=== PATIENT | female | born 2000 | race Two or more races ===

== ENCOUNTER 2024-10-09 17:19 | Emergency (ER) | payer MEDICAID, SELFPAY ==
[2024-10-09 17:19] VITALS: BMI 23.6
[2024-10-09 17:25] VITALS: BP 106/72; PULSE 104; RESP 20; TEMP 36.8; O2SAT 95
--- NOTE | 2024-10-09 17:28 | XR_ITS ---
Examination: Complete OB ultrasound, less than 14 weeks, transabdominal Date and time of exam: October 09, 2024 1823 hours INDICATIONS: Pelvic cramping beginning today Technique: Obstetrical ultrasound images less than 14 weeks performed via transabdominal imaging Findings: Uterus 12.0 cm, pole 5.2 cm corresponds to 11 week 6 day gestational age No cardiac motion Right ovary obscured by bowel gas Left ovary 3.1 cm arterial flow IMPRESSION: demise
--- NOTE | 2024-10-09 17:28 | PD.EDRME ---
Rapid Medical Screening Exam RME Arrival date/time: 10/09/24 17:19 24-year-old female G5, presents to the emergency department today for complaints of pelvic pain and back pain patient reports being Chief Complaint: General Adult/Misc Complain Vital signs: Vital Signs Temperature 98.2 F 10/09/24 17:25 Pulse Rate 104 H 10/09/24 17:25 Respiratory Rate 20 10/09/24 17:25 Blood Pressure 106/72 10/09/24 17:25 Pulse Oximetry (%) 95 10/09/24 17:25 Oxygen Delivery Method Room Air 10/09/24 17:25
[2024-10-09 18:03] LABS: Basophils % (Auto) 0 % (0-2.5); Eosinophils # (Auto) 0.2 Thou/mm3 (0.0-0.5); Eosinophils % (Auto) 2 % (0-10); Hematocrit 44.4 % (36.0-46.0); Immature Granulocytes % (Auto) 0 % (0-0); Immature Granulocytes Auto 0.03 Thou/mm3 (0.00-0.00); Lymphocytes # (Auto) 2.5 Thou/mm3 (1.0-4.8); Lymphocytes % (Auto) 27 % (10-50); Mean Corpuscular HGB Conc 33.8 g/dl (31.0-37.0); Mean Corpuscular Hemoglobin 29.5 pg (25.0-35.0); Mean Corpuscular Volume 87 fL (80-100); Monocytes # (Auto) 0.6 Thou/mm3 (0.0-0.8); Monocytes % (Auto) 6 % (0-12); Neutrophils # (Auto) 5.8 Thou/mm3 (1.8-7.7); Neutrophils % (Auto) 64 % (37-80); Nucleated Red Blood Cell % 0 /100 WBC (0); Platelet Count 295 Thou/mm3 (140-440); Red Blood Count 5.08 Miln/mm3 (4.00-5.20); White Blood Count 9.1 Thou/mm3 (3.6-11.0)
[2024-10-09 18:34] LABS: Alanine Aminotransferase 8 U/L (10-49); Albumin, Serum 4.5 gm/dL (3.5-5.0); Albumin/Globulin Ratio 1.5 (1.2-2.2); Alkaline Phosphatase 49 U/L (46-116); Anion Gap 7 (7-16); Aspartate Amino Transferase 14 U/L (0-34); BUN/Creatinine Ratio 10 Ratio (12-20); Bilirubin,Total 0.5 mg/dL (0.3-1.2); Blood Urea Nitrogen 5 mg/dL (9-23); Calcium 9.4 mg/dL (8.3-10.6); Calcium (Corrected) 9.4 mg/dL (8.5-10.1); Carbon Dioxide 25.7 mMol/L (20.0-31.0); Chloride 105 mMol/L (98-107); Creatinine (Component) 0.5 mg/dL (0.6-1.3); Estimated Creatinine Clearance 142.3 mL/min (>60); Globulin 3.1 gm/dL (2.3-3.5); Glucose 97 mg/dL (74-106); Osmolality,Calculated 272 (275-295); Potassium 4.1 mMol/L (3.4-5.1); Sodium 138 mMol/L (136-145); Total Protein 7.6 gm/dL (5.7-8.2); eGFR > 60 See Note
[2024-10-09 19:01] LABS: Beta HCG,Quantitative 58130 mIU/mL (<5.0)
[2024-10-09 19:46] LABS: Collection Type, Urine Clean Catch
[2024-10-09 20:00] LABS: Bacteria,Urine 3+; Bilirubin,Urine Negative (Negative); Blood,Urine Negative (Negative); Clarity,Urine Clear (Clear/Hazy); Color,Urine Colorless (Lt Yel-Yel); Glucose, Urine Negative (Negative); Ketones,Urine Negative (Negative); Leukocyte Esterase,Urine Negative (Negative); Nitrite,Urine Negative (Negative); Protein,Urine Negative (Neg - Trace); RBC,Urine 2 /hpf (0-3); Specific Gravity,Urine 1.004 (1.001-1.035); Squamous Epithelial Cell,Urine 1 /hpf (0-5); Urobilinogen,Urine Negative mg/dL (0.0-1.0); WBC,Urine 1 /hpf (0-5)
[2024-10-09 22:06] VITALS: BP 111/73; PULSE 81; RESP 16; TEMP 37.2; O2SAT 99
[2024-10-09 23:34] VITALS: BP 101/61; PULSE 83; RESP 18; TEMP 36.8; O2SAT 96
--- NOTE | 2024-10-10 00:46 | PD.EDADULT ---
ED General RME/HPI General Chief complaint: General Adult/Misc Complain Stated complaint: 12WK PREG, LOWER ABD CRAMPING AND BACK PAIN SINCE Time Seen by Provider: 10/09/24 21:25 Arrival date/time: 10/09/24 17:19 RME / HPI RME / HPI narrative: 10/09/24 17:19 24-year-old female G5, presents to the emergency department today for complaints of pelvic pain and back pain patient reports being --------- Dr. Mondragon?s Main ED Evaluation: 24yo female presents to the ED for complaints of pelvic pain and back pain. Patient states she started having abdominal and back cramps earlier today. She states she is 12 weeks gestation. She denies any fever, chills, vaginal bleeding, abnormal discharge or any other associated symptoms. She does not have any OB follow-up. Related Data Previous Rx's ?Medication ?Instructions ?Recorded hydrocodone 5 mg-acetaminophen 325 1 tab PO Q6H #20 tabs 20 mg tablet ([place]) ibuprofen 600 mg tablet 600 mg PO Q6H #30 tabs 15/20 doxycycline monohydrate 100 mg 100 mg PO BID Leg cellulitis 10 10/09/24 capsule days #20 caps Allergies Allergy/AdvReac Type Severity Reaction Status Date / Time Penicillins Allergy Unknown Verified 10/09/24 17:21 Review of Systems Review of Systems Systems Reviewed: All systems reviewed, normal except as documented Past Medical History Past Medical History NEUROLOGIC: Negative Neurological Disorders or Seizures CARDIAC: Negative Cardiac Disorders or Congestive Heart Failure RESPIRATORY: Negative Chronic Obstructive Pulmonary Disease (COPD) GASTROINTESTINAL: Negative Gastrointestinal Disorders, Hepatitis or Colorectal Cancer GENITOURINARY: Negative Genitourinary Disorders, Renal Disease or Prostate Cancer REPRODUCTIVE: Negative Breast Cancer, Endometriosis, Pelvic Inflammatory Disease, Previous Pregnancies, Testicular Cancer or Uterine Prolapse MUSCULOSKELETAL: Negative Musculoskeletal Disorders or Bone Cancer ENDOCRINE: Negative Endocrine Disorders, Diabetes Mellitus Type 1 or Diabetes Mellitus Type 2 HEMATOLOGIC: Negative Blood Disorders OTHER HISTORY: Negative Hospitalization, Autoimmune Disease, Down Syndrome, Developmental Delay, Shingles, Falls, Blood Transfusions, Blood Transfusion Reaction, Anesthesia Reactions, Organ Transplant, Chemotherapy, Radiation Therapy, Hyperbaric Therapy, MRSA, VRSA, Vancomycin-Resistant Enterococci, Human Immunodeficiency Virus (HIV), Chicken Pox, Measles, Mumps, Rubella (Gabonese Measles), Pertussis, Clostridium Difficile, Breast Cancer, Cervical Cancer, Colorectal Cancer, Lung Cancer, Ovarian Cancer, Prostate Cancer or Testicular Cancer Family History FAMILY HISTORY: Negative Family Psychiatric Problems, Family Respiratory Disorders, Family Cardiac Disorders, Family Gastrointestinal Problems, Family Cancer, Family Surgery or Family Anesthesia Reaction Surgical History SURGICAL: Negative Abdominal Surgery, Section or Organ Transplant Social History SMOKING STATUS: Never smoker SUBSTANCE USE: does not use ED Exam Narrative Physical exam: GENERAL APPEARANCE: alert and oriented x 4, well-developed, well-nourished, no acute distress VITALS: All vitals were reviewed and the pulse ox is 96% on room air, which is normal according to my interpretation. HEENT: Normocephalic, atraumatic; pupils equal, round, reactive to light; EOMI; mucous membranes pink, moist; oropharynx clear NECK: Supple LUNGS: CTABL; no wheezes, no rales, no rhonchi HEART: Regular rate, regular rhythm; normal S1, S2; no murmurs ABDOMEN: non distended; normal BS; soft, no tenderness, no guarding, no rebound; no masses, no organomegaly, no hernia BACK: no CVA tenderness EXTREMITIES: atraumatic; no edema NEUROLOGIC: awake; alert and oriented x4; cranial nerves II-XII grossly intact; no focal sensory or motor deficits PSYCHIATRIC: appropriate mood and affect SKIN: warm, dry, normal color; no rashes Course Quality Measures none Orders Category Date Time Status US OB <= 14 weeks fetus Stat Exams 10/09/24 17:28 Completed ABO/RH Type Stat Lab 10/09/24 17:52 Completed Beta HCG,Quantitative Stat Lab 10/09/24 17:52 Completed CBC Stat Lab 10/09/24 17:52 Completed Comprehensive Metabolic Panel Stat Lab 10/09/24 17:52 Completed UA [Urinalysis] Stat Lab 10/09/24 19:30 Completed Urine Culture Stat Lab 10/09/24 19:30 Received Doxycycline [Vibramycin] Med 10/09/24 21:40 Discontinued 100 mg PO X1 ONE Vital Signs Vital signs: Vital Signs Temperature 98.2 F 10/09/24 17:25 Pulse Rate 104 H 10/09/24 17:25 Respiratory Rate 20 10/09/24 17:25 Blood Pressure 106/72 10/09/24 17:25 Pulse Oximetry (%) 95 03/31/25 17:25 Oxygen Delivery Method Room Air 10/09/24 17:25 [facility] Patient data External records reviewed:: [facility] previous records (Per chart review, patient was seen here yesterday for cellulitis.) Clinical information provided by:: patient Social determinants that could affect healthcare access:: none Patient has the following chronic illnesses:: none How is presenting disease/condition affected by chronic disease/condition?: no chronic disease Evaluation data The following diagnostics were reviewed and interpreted by me:: lab results and radiology exam(s) Lab and/or radiology exams considered but not ordered:: none Interpretation Summary: CBC is normal, [place] [address], according to my interpretation. [facility] Report Signed Patient: USHA NOBLES Record#: [id number] Birthdate: 2000 Age/Sex: 24 / F Location: [facility] Attending Dr: Ordering Physician: Osman FRIED)Oz NP Date of Service: 10/09/24 Procedure(s): US OB <= 14 weeks fetus Accession Number(s): [id number] cc: Osman FRIED),Oz WHITFIELD; Nirmal Barber MD; NO PRIMARY/FAMILY,PHYSICIAN~ Examination: Complete OB ultrasound, less than 14 weeks, transabdominal Date and time of exam: October 09, 2024 1823 hours INDICATIONS: Pelvic cramping beginning today Technique: Obstetrical ultrasound images less than 14 weeks performed via transabdominal imaging Findings: Uterus 12.0 cm, pole 5.2 cm corresponds to 11 week 6 day gestational age No cardiac motion Right ovary obscured by bowel gas Left ovary 3.1 cm arterial flow IMPRESSION: demise Dictated By: Nirmal Barber MD Signed By: <Electronically signed by Nirmal Barber MD in OV> 10/09/24 1922 Medications Medications considered but not ordered:: none Medication administrations:: Medication Administration History Discontinued Medications Doxycycline Hyclate (Doxycycline 100 Mg Tablet) 100 mg PO X1 ONE Stop: 10/09/24 21:41 Last Admin: 10/09/24 22:03 Dose: Not Given Documented By: FAISAL Non-Admin Reason: Discontinued see above Consultations Consultation(s) initiated? (list below): Yes Consultation #1 (Physician, Specialty, Details): Discussed case with [Dr. Nowak] from OB regarding consultation. Discussed patients ED course, exam findings, labs, and radiology results. States the patient can follow-up with her in the clinic in the next 1-2 days. Time: 00:46 Diagnosis Differential Diagnosis ED Complaint MDM: incomplete AB, inevitable AB, complete AB, threatened AB Most likely diagnosis given after review of the tests above:: see below Admission Indicated Admission indicated?: not indicated Explain why admission is indicated or not indicated:: No criteria for admission. Admission Request Was there a request for admission?: No Disposition Plan Disposition Plan: Discharge Discharge Attestation Discharge Attestation: The patient and all family members were given an opportunity to ask questions and understood the discharge instructions. Discharge instructions specifically effects, indications for sooner follow up or return to the emergency department, and the expected course of current diagnosis. Patient condition: Stable Medical Decision Making MDM Narrative MDM Narrative: Scribe Attestation: 10/10/24 - Iris Willett am scribing for and in the presence of Dr. Mondragon. Differential Diagnosis Differential Diagnosis: incomplete AB, inevitable AB, complete AB, threatened AB Lab Data 10/09/24 17:52 10/09/24 17:52 Labs: Lab Results 10/09/24 10/09/24 Range/Units 17:52 19:30 WBC 9.1 (3.6-11.0) Thou/mm3 RBC 5.08 (4.00-5.20) Miln/mm3 Hgb 15.0 (12.0-16.0) g/dL Hct 44.4 (36.0-46.0) % MCV 87 (80-100) fL MCH 29.5 (25.0-35.0) pg MCHC 33.8 (31.0-37.0) g/dl RDW Std Deviation 40.0 (36.4-46.3) fL Plt Count 295 (140-440) Thou/mm3 Neut % (Auto) 64 (37-80) % Lymph % (Auto) 27 (10-50) % Riley % (Auto) 6 (0-12) % Eos % (Auto) 2 (0-10) % Baso % (Auto) 0 (0-2.5) % Neut # (Auto) 5.8 (1.8-7.7) Thou/mm3 Lymph # (Auto) 2.5 (1.0-4.8) Thou/mm3 Riley # (Auto) 0.6 (0.0-0.8) Thou/mm3 Eos # (Auto) 0.2 (0.0-0.5) Thou/mm3 Baso # (Auto) 0.0 (0.0-0.2) Thou/mm3 Immature Gran # (Auto) 0.03 H (0.00-0.00) Thou/mm3 Absolute Nucleated RBC 0.00 (0.00-0.00) Thou/mm3 Immature Gran % 0 (0-0) % Nucleated RBC % 0 (0) /100 WBC Sodium 138 (136-145) mMol/L Potassium 4.1 (3.4-5.1) mMol/L Chloride 105 (98-107) mMol/L Carbon Dioxide 25.7 (20.0-31.0) mMol/L Anion Gap 7 (7-16) BUN 5 L (9-23) mg/dL Creatinine 0.5 L (0.6-1.3) mg/dL Estim Creat Clear Calc 142.3 (>60) mL/min eGFR > 60 (60 - ) See Note BUN/Creatinine Ratio 10 L (12-20) Ratio Glucose 97 (74-106) mg/dL Calculated Osmolality 272 L (275-295) Calcium 9.4 (8.3-10.6) mg/dL Corrected Calcium 9.4 (8.5-10.1) mg/dL Total Bilirubin 0.5 (0.3-1.2) mg/dL AST 14 (0-34) U/L ALT 8 L (10-49) U/L Alkaline Phosphatase 49 (46-116) U/L Total Protein 7.6 (5.7-8.2) gm/dL Albumin 4.5 (3.5-5.0) gm/dL Globulin 3.1 (2.3-3.5) gm/dL Albumin/Globulin Ratio 1.5 (1.2-2.2) Beta HCG, Quant 05854 (<5.0) mIU/mL Ur Collection Type Clean Catch Urine Color Colorless A (Lt Yel-Yel) Urine Clarity Clear (Clear/Hazy) Urine pH 7.0 (5.0-7.0) Ur Specific Polo 1.004 (1.001-1.035) Urine Protein Negative (Neg - Trace) Urine Glucose (UA) Negative (Negative) Urine Ketones Negative (Negative) Urine Blood Negative (Negative) Urine Nitrite Negative (Negative) Urine Bilirubin Negative (Negative) Urine Urobilinogen (Auto) Negative (0.0-1.0) mg/dL Ur Leukocyte Esterase Negative (Negative) Urine RBC 2 (0-3) /hpf Urine WBC 1 (0-5) /hpf Ur Squamous Epith Cells 1 (0-5) /hpf Urine Bacteria 3+ A (None) Blood Type AB Positive Blood Bank Wristband ID Yes Discharge Plan Plan Patient Disposition: HOME (Self Care) Disposition Comment: Stable for discharge home Patient condition on transfer: Stable Prescriptions/Referrals Prescriptions/Med Rec: New doxycycline monohydrate 100 mg capsule 100 mg PO BID 10 Days Qty: 20 0RF No Action ibuprofen 600 mg tablet 600 mg PO Q6H Qty: 30 0RF hydrocodone-acetaminophen [[place]] 5-325 mg tablet 1 tab PO Q6H MDD 15 Qty: 20 0RF Referrals: [facility] ([facility]),Katiuska Mak MD [Physician] - In 1 week (Patient with 11-week, 6-day demise. Ultrasound performed in the emergency department 10/09/2024) Problem List Clinical Impression: demise Patient/Caregiver Discharge Instructions Discharge Activity: activity as tolerated Education Materials: ED Cellulitis Additional Instructions: I have included the contact information for the OB clinic. You should be seen there within the next day or 2. I would call that number and let them know you were seen in the ER and that you have something called demise. They should see you on 10/10/2024 or the next day. Please return to the emergency department if you have any worsening or any further medical problems. I have called in a prescription for acetaminophen as well as ibuprofen at your pharmacy. You can take these meds up to every 6 hours for pain. Print Language: Georgian Stand Alone Forms: [facility] Award Info., Patient Portal Info Letter
== END 2024-10-10 01:15 | disposition home or self-care (01) ==
PROVIDERS: Nurse Practitioner Primary Care; Emergency Provider Emergency Medicine
DX: O02.1 Missed abortion (principal)
CPT/HCPCS: 36415; 76801; 80053; 81001; 84702; 85025; 86900; 86901; 87086; 99284